=== PATIENT | male | born 1940 | race Caucasian/White ===

== ENCOUNTER 2017-05-09 23:32 | Emergency (ER) | payer MEDICARE, BC ==
[~2017-05-09] VITALS: Ht 182.9 cm; Wt 106.8 kg
[~2017-05-09 23:32] MED LIST: COMBIGAN 0.2%-010 ML OU; CYCLOBENZAPRINE10 MG PO; DOXAZOSIN MESYLA4 MG PO; FLOMAX0.4 MG PO; FLUTICASON0.05 MG/A1 NS; LEVOTHYROXINE0.1 MG PO; LOSARTAN POTASS1 TA2 PO; PERCOCET 325 MG1 TA2 PO; SIMVASTATIN20 MG PO; TOPROL XL25 MG PO; XALATAN EYE DROPS OU; ZOLPIDEM5 MG PO
[2017-05-09] MEDS ORDERED: HYZAAR 50-12.51 EACH PO (23:53)
[2017-05-09] MEDS ORDERED: GOOD SENSE ASPI81 M1 PO (23:53)
[2017-05-09] MEDS ORDERED: COLACE100 M1 PO (23:54)
[2017-05-09] MEDS ORDERED: PROBIOTIC1 EAC2 PO (23:54)
[2017-05-09] MEDS ORDERED: FISH OIL 1,4001 EACH PO (23:54)
[2017-05-09] MEDS ORDERED: CRANBERRY500 M3 PO (23:54)
[2017-05-10 01:52] LABS: URINE APPEARANCE HAZY; URINE BILIRUBIN NEGATIVE (NEGATIVE); URINE BLOOD NEGATIVE (NEGATIVE); URINE COLOR YELLOW; URINE GLUCOSE NEGATIVE (NEGATIVE); URINE KETONE NEGATIVE (NEGATIVE); URINE LEUKOCYTE ESTERASE NEGATIVE (NEGATIVE); URINE NITRATE NEGATIVE (NEGATIVE); URINE PROTEIN(semi-quant) TRACE mg/dL (NEGATIVE); URINE UROBILINOGEN NORMAL (NORMAL)
[2017-05-10 01:53] LABS: URINE MUCUS PRESENT (NOT PRESENT)
[2017-05-10 03:31] VITALS: BP 113/81
== END 2017-05-10 03:31 | disposition home or self-care (01) ==
LOC: ED 23:32
PROVIDERS: Nurse Practitioner Family
DX: K59.00 Constipation, unspecified (principal); N40.1 Benign prostatic hyperplasia with lower urinary tract symptoms; R33.8 Other retention of urine; I10 Essential (primary) hypertension; Z79.82 Long term (current) use of aspirin; Z88.2 Allergy status to sulfonamides; Z88.1 Allergy status to other antibiotic agents

== ENCOUNTER → 2020-12-21 | Day surgery (SDC) | payer MEDICARE, BC ==
[~2020-12-21] MED LIST changes: +COLACE100 M1 PO; +CRANBERRY500 M3 PO; +FISH OIL 1,4001 EACH PO; +GOOD SENSE ASPI81 M1 PO; +HYZAAR 50-12.51 EACH PO; +PROBIOTIC1 EAC2 PO
== END | disposition home or self-care (01) ==
LOC: MSO 10:10
DX: H26.492 Other secondary cataract, left eye (principal)
CPT/HCPCS: A9270-GY

== ENCOUNTER → 2021-04-28 | Outpatient (CLI) | payer MEDICARE, BC | LOC: VAS 08:39 → RAD 09:00 | DX: R42 Dizziness and giddiness (principal) ==

== ENCOUNTER → 2021-05-22 | Outpatient (CLI) | payer MEDICARE, BC ==
[2021-05-22 15:42] LABS: URINE WBC 0 /hpf (0-3)
[2021-05-22 15:48] LABS: BASO # 0.04 K/mm3 (0.02-0.10); EOS # 0.57 K/mm3 (0.04-0.40); EOS % 5.1 % (0.0-4.0); HEMATOCRIT 38.7 % (42.0-52.0); HEMOGLOBIN 13.2 g/dL (13.5-18.0); LYMPH# 1.05 K/mm3 (1.50-4.00); MEAN CELL VOLUME 96 fl (78-100); MEAN CORPUSCULAR HEMOGLOBIN 33 pg (27-31); MEAN CORPUSCULAR HGB CONC 34 g/dL (33-37); MEAN PLATELET VOLUME 8.8 fl (7.4-10.4); MONO # 1.11 K/mm3 (0.20-0.80); PLATELET COUNT 212 K/mm3 (130-400); RED BLOOD COUNT 4.04 M/mm3 (4.20-5.60); WHITE BLOOD COUNT 11.1 K/mm3 (4.8-10.8)
[2021-05-22 15:58] LABS: POTASSIUM 4.3 mmol/L (3.5-5.1)
[2021-05-22 16:00] LABS: TOTAL PROTEIN 7.1 g/dL (6.2-8.1)
[2021-05-22 16:02] LABS: TOTAL BILIRUBIN 0.8 mg/dL (0.2-1.2)
[2021-05-22 16:03] LABS: URINE APPEARANCE CLEAR; URINE BILIRUBIN NEGATIVE (NEGATIVE); URINE BLOOD NEGATIVE (NEGATIVE); URINE COLOR YELLOW; URINE GLUCOSE NEGATIVE (NEGATIVE); URINE KETONE NEGATIVE (NEGATIVE); URINE LEUKOCYTE ESTERASE NEGATIVE (NEGATIVE); URINE NITRATE NEGATIVE (NEGATIVE); URINE PROTEIN(semi-quant) TRACE (NEGATIVE); URINE UROBILINOGEN NORMAL (NORMAL)
== END ==
LOC: LAB 15:30 → RAD 15:30
PROVIDERS: Family Medicine
DX: K57.32 Diverticulitis of large intestine without perforation or abscess without bleeding (principal); N26.1 Atrophy of kidney (terminal); N28.1 Cyst of kidney, acquired

== ENCOUNTER 2021-12-03 06:08 | Emergency (ER) | payer MEDICARE, BC ==
[~2021-12-03] VITALS: Ht 182.9 cm; Wt 111.3 kg
[2021-12-03 07:05] LABS: BASO # 0.04 K/mm3 (0.02-0.10); EOS # 0.53 K/mm3 (0.04-0.40); EOS % 9.2 % (0.0-4.0); HEMATOCRIT 33.8 % (42.0-52.0); HEMOGLOBIN 11.5 g/dL (13.5-18.0); LYMPH# 0.85 K/mm3 (1.50-4.00); MEAN CELL VOLUME 95 fl (78-100); MEAN CORPUSCULAR HEMOGLOBIN 32 pg (27-31); MEAN CORPUSCULAR HGB CONC 34 g/dL (33-37); MEAN PLATELET VOLUME 8.9 fl (7.4-10.4); MONO # 0.61 K/mm3 (0.20-0.80); NEU # 3.66 K/mm3 (1.40-6.50); PLATELET COUNT 234 K/mm3 (130-400); RED BLOOD COUNT 3.56 M/mm3 (4.20-5.60); RED CELL DISTRIBUTION WIDTH 11.8 % (11.5-14.5); WHITE BLOOD COUNT 5.8 K/mm3 (4.8-10.8)
[2021-12-03 07:16] LABS: ALBUMIN 3.8 g/dL (3.4-4.8); POTASSIUM 4.3 mmol/L (3.5-5.1)
[2021-12-03 07:17] LABS: CALCIUM 9.5 mg/dL (8.3-10.5)
[2021-12-03 07:19] LABS: TOTAL PROTEIN 6.6 g/dL (6.2-8.1)
[2021-12-03 07:20] LABS: TOTAL BILIRUBIN 0.5 mg/dL (0.2-1.2)
[2021-12-03 08:53] VITALS: BP 157/100
== END 2021-12-03 08:55 | disposition home or self-care (01) ==
LOC: ED 06:08
PROVIDERS: Family Medicine
DX: I10 Essential (primary) hypertension (principal); R94.4 Abnormal results of kidney function studies; Z95.5 Presence of coronary angioplasty implant and graft

== ENCOUNTER 2022-02-13 09:08 | Outpatient (RCR) | payer MEDICARE, BC | END 2022-03-14 | disposition still patient (30) | LOC: PT | DX: R07.9 Chest pain, unspecified (principal); M54.9 Dorsalgia, unspecified; M25.511 Pain in right shoulder; M25.512 Pain in left shoulder ==

== ENCOUNTER 2023-10-28 08:00 | Outpatient (RCR) | payer MEDICARE, BC ==
[~2023-10-28 08:00] MED LIST changes: +ACETAMINOPHEN500 M7 PO; +CARDURA2 MG PO; +CEFADROXIL500 MG PO; +CLARITIN10 M2 PO; +COMBIGAN 0.2%-0.5 ML OP; +COZAAR 50MG50 MG/TAB PO; +DILTIAZEM 24HR120 M2 PO; +ELIQUIS2.5 MG PO; +FLUTICASONE P15.8 ML NS; +LOSARTAN POTASS25 MG PO; +LYMEPAK100 MG PO; +MULTIPLE VITAMI1 TA1 PO; +ROXICODONE 55 MG/TAB PO; +SENNA-S 8.6-501 EACH PO; +SIMVASTATIN20 M1 PO; +TIZANIDINE HYDRO4 M1 PO; +TIZANIDINE2 MG PO
== END 2023-11-13 ==
LOC: PT
DX: Z96.652 Presence of left artificial knee joint (principal)

== ENCOUNTER 2023-11-14 10:19 | Outpatient (RCR) | payer MEDICARE, BC | END 2023-12-14 | disposition home or self-care (01) | LOC: PT | DX: Z96.652 Presence of left artificial knee joint (principal) ==

== ENCOUNTER 2023-12-19 08:00 | Outpatient (RCR) | payer MEDICARE, BC | END 2024-01-13 11:14 | LOC: PT 08:00 | DX: Z96.652 Presence of left artificial knee joint (principal) ==